=== PATIENT | female | born 1970 | race African-American/Black ===

== ENCOUNTER 2017-07-13 13:37 | Emergency (ER) | payer BC ==
[~2017-07-13] VITALS: Ht 162.6 cm; Wt 96.2 kg
[~2017-07-13 13:37] MED LIST: ATARAX50 MG ORAL; BACTRIM-DS1 EA ORAL; BENTYL10 MG ORAL; GUAIFENESIN1200 MG PO; IBUPROFEN400 MG ORAL; NKM; OMEPRAZOLE20 M2 ORAL; PEPCID40 MG PO; PROMETHAZINE-D118 ML ORAL; SIMETHICONE80 MG ORAL; TINACTIN133 GM TOPIC
[2017-07-13 14:19] VITALS: BP 130/74
[2017-07-13] MEDS ORDERED: PEPCID40 MG PO (15:14)
[2017-07-13] MEDS ORDERED: CYCLOBENZAPRINE10 MG ORAL (15:14)
[2017-07-13] MEDS ORDERED: IBUPROFEN600 MG ORAL (15:14)
[2017-07-13 15:21] VITALS: BP 128/73
--- NOTE | 2017-07-13 16:44 | Emergency Room Report ---
History of Present Illness General Chief Complaint: Pain Source: Patient Present Illness HPI 47-year-old female patient presents to ED complaining of inner thigh pain. Patient states the pain "radiates around the sides from the back" and she feels like she "pulled a muscle" in her right leg. Patient denies history of trauma or accident. Patient reports getting out of her car "a few hours ago" and pain suddenly worsening at that time. Patient is also requesting medications for her gastric reflux. Patient reports previously being seen for reflux symptoms in the ED and requesting the same medication given at that time. Patient denies acute symptoms currently in ED. Patient denies fever, SOB, incontinence, nausea, vomiting, diarrhea. Patient denies dysuria, hematuria, flank pain, groin pain. Allergies: Coded Allergies: No Known Allergies (Unverified , 10/07/15) Patient History Past Medical History: see triage record Social History: Denies: smoking, alcohol use, drug use Last Menstrual Period: 2 days ago Immunizations: UTD Reviewed Nursing Documentation: PMH: Agreed, PSxH: Agreed Nursing Documentation-PMH Past Medical History: No History, Except For Hx Gastrointestinal Problems: Yes - Acid reflux Review of Systems All Other Systems: negative except mentioned in HPI Physical Exam Vital Signs Date Time Temp Pulse Resp B/P (MAP) Pulse Ox O2 Delivery O2 Flow Rate FiO2 07/13/17 14:19 98.1 18 130/74 99 Room Air 07/13/17 14:19 74 Sp02 EP Interpretation: reviewed, normal General Appearance: no apparent distress, alert, GCS 15, non-toxic Head: normocephalic, atraumatic Eyes: bilateral eye normal inspection, bilateral eye PERRL Respiratory: chest non-tender, lungs clear, normal breath sounds, no rhonchi, no respiratory distress, no accessory muscle use, no wheezing, speaking full sentences Cardiovascular #1: regular rate, rhythm Gastrointestinal: normal bowel sounds, non tender, soft, no mass, non-distended , no guarding, no rebound Genitourinary: normal inspection, no CVA tenderness, no vertebral tenderness, other - Abnormal gait secondary to pain. Musculoskeletal: back normal, normal range of motion, non-tender, pelvis stable , calf tenderness Neurologic: alert, oriented x3, responsive, motor strength/tone normal, speech normal Psychiatric: judgement/insight normal, memory normal, mood/affect normal, no suicidal/homicidal ideation Skin: normal color, no rash, warm/dry Medical Decision Making PA Attestation Dr. Britt is my supervising Physician whom patient management has been discussed with. Diagnostic Impression: Primary Impression: Acid reflux Additional Impressions: Back ache Muscle strain ER Course Pt. presents to the ED c/o inner thigh and back pain. Patient is also requesting reflux medication. Ddx considered but are not limited to fracture, sprain, strain, contusion, pyelonephritis, cystitis. Vital signs: are WNL, pt. is afebrile. H&PE are most consistent with muscle strain. ORDERS: None required at this time, diagnosis is clinical. ED INTERVENTIONS: None required at this time. DISCHARGE: -Rx provided for Ibuprofen for pain symptoms. -Rx provided for Flexeril. -Rx provided for Famotidine at patients request. At this time pt. is stable for d/c to home. Will provide printed patient care instructions, and any necessary prescriptions. Patient instructed to follow with primary care provider in 3 - 5 days to discuss pain and reflux; patient also instructed to request further orthopedic follow-up. Care plan and follow up instructions have been discussed with the patient prior to discharge. Take medications as directed. Patient questions asked and answered. ER precautions given, patient instructed to return to ER immediately for any new or worsening of symptoms. Last Vital Signs Date Time Temp Pulse Resp B/P (MAP) Pulse Ox O2 Delivery O2 Flow Rate FiO2 07/13/17 15:21 98.1 71 18 128/73 99 Room Air Disposition: HOME, SELF-CARE Condition: Stable Scripts Ibuprofen* (MOTRIN*) 600 Mg Tablet 600 MG ORAL Q8H Y for For Pain, #30 TAB 0 Refills Prov: Pete Manning P.A. 07/13/17 Famotidine (PEPCID) 40 Mg Tablet 40 MG PO DAILY, #7 TAB 0 Refills Prov: Pete Manning P.A. 07/13/17 Cyclobenzaprine Hcl* (FLEXERIL*) 10 Mg Tablet 10 MG ORAL QHS for 7 Days, #7 TAB Prov: Pete Manning P.A. 07/13/17 Departure Forms: Return to Work Return to Work in (Days): 1 Return to Work Date: Jul 14, 2017 Return to Full Activity: Jul 14, 2017 Patient Instructions: Back Pain, Adult, [id number], Gastroesophageal Reflux Disease, Adult Additional Instructions: Followup with primary care provider in 3 -5 days. Take medications as directed. Take muscle relaxant at night as it may cause drowsiness. Do not take while operating a vehicle or drink alcohol while on the medication. Patient questions asked and answered. ER precautions given, patient instructed to return to ER immediately for any new or worsening of symptoms. Pete Manning Jul 13, 2017 16:44
== END 2017-07-13 15:25 | disposition home or self-care (01) ==
LOC: EMR 14:00
DX: M79.651 Pain in right thigh (principal); K21.9 Gastro-esophageal reflux disease without esophagitis; S39.012A Strain of muscle, fascia and tendon of lower back, initial encounter; X58.XXXA Exposure to other specified factors, initial encounter; Y92.9 Unspecified place or not applicable; Z76.0 Encounter for issue of repeat prescription
CPT/HCPCS: 99283